=== PATIENT | female | born 1940 | race Caucasian/White ===

== ENCOUNTER → 2017-11-15 | Day surgery (SDC) | payer MEDICARE, BC ==
[~2017-11-15] MED LIST: ALENDRONATE SOD70 MG PO; AMLODIPINE BESYL5 MG PO; ASPIRIN EC81 MG PO; BUPIVACAINE 0.25%/EPI 30ML SDV INJ ONE; COLESTIPOL HCL1 GM PO; DEXAMETHASONE SOD PHOS INJ 4 MG/ML VIAL ONE; DONEPEZIL HCL10 MG PO; EPHEDRINE SULFATE INJ 50 MG/10 ML SYR ONE; FENTANYL CITRATE/PF 100MCG/2 ML INJ ONE; FOLIC ACID1 MG PO; GEMFIBROZIL600 MG PO; GLYCOPYRROLATE INJ 1MG/ 5 ML SYR ONE; HUMIRA20 MG/0.4 SC; HYDROCHLOROTH12.5 MG PO; HYDROCODONE/ACETAMINOPHEN; LABETALOL 5 MG/ML ONE; LABETALOL HCL IV 5 MG/ML 20ML MDV ONE; LIDOCAINE HCL 2% LOCAL INJ 5 ML SDV VIAL INJ ONE; LOMOTIL TABLET1 EACH PO; LOSARTAN POTAS100 MG PO; METHOTREXATE PO; MIDAZOLAM HCL 2 MG/2 ML VIAL ONE; MYRBETRIQ25 MG PO; NEOSTIGMINE 1 MG/ML 10ML VIAL ONE; NEXIUM40 MG PO; ONDANSETRON HCL INJ 2 MG/ML VIAL ONE; POTASSIUM CHLO10 ME1 PO; PROPOFOL IV EMULSION 10 MG/ML 20 ML VIAL ONE; ROCURONIUM BROMIDE 10 MG/ML 5ML VIAL ONE; SEVOFLURANE INHAL SOLN 250 ML PEN BTL ONE; ULTRAM50 MG
[2017-11-15 09:56] LABS: BASOPHILS # (AUTO) 0.1 (0.0-0.1); BASOPHILS % 0.8 % (0.0-1.0); EOSINOPHILS # (AUTO) 0.1 (0.0-0.4); EOSINOPHILS % 2.2 % (0.0-6.0); HEMOGLOBIN 12.3 g/dL (12.0-16.0); LYMPHOCYTES # (AUTO) 2.8 (1.0-3.2); LYMPHOCYTES % 43.8 % (18.0-39.1); MEAN CORPUSCULAR HEMOGLOBIN 30.4 pg (28-32); MEAN CORPUSCULAR HGB CONC 33.2 g/dL (31-35); MEAN CORPUSCULAR VOLUME 91.6 fL (81-99); MONOCYTES # (AUTO) 0.5 (0.2-0.8); MONOCYTES % 7.5 % (4.4-11.3); NEUTROPHILS # (AUTO) 2.9 (2.1-6.9); NEUTROPHILS % 45.5 % (38.7-80.0); PLATELET COUNT 199 x10e3/uL (140-360); RED BLOOD COUNT 4.04 x10e6/uL (3.6-5.1); RED CELL DISTRIBUTION WIDTH 13.2 % (11.7-14.4)
--- NOTE | 2017-11-15 10:09 | Diagnostic Imaging Report ---
PROCEDURE:CHEST 2 VIEWS TECHNIQUE:PA and lateral chest INDICATION:Preoperative evaluation for ventral hernia repair COMPARISON:[facility], , CHEST 2 VIEWS, 04/06/2015, 11:37. FINDINGS: Left lower lobe interstitial scar. Lungs are otherwise clear and symmetrically inflated. No pleural effusions. Normal heart size, mediastinal contour, and pulmonary vasculature. Intact skeleton. Healed right fourth rib fracture. Cholecystectomy clips. CONCLUSION: No acute abnormality. Dictated by: Kartik English M.D. on 11/15/2017 at 10:09 Electronically approved by: Kartik English M.D. on 11/15/2017 at 10:09
[2017-11-15 10:28] LABS: ALANINE AMINOTRANSFERASE 18 IU/L (0-55); ALBUMIN 3.7 g/dL (3.5-5.0); ALBUMIN/GLOBULIN RATIO 1.2 (0.8-2.0); ALKALINE PHOSPHATASE 54 IU/L (40-150); ANION GAP 12.5 mmol/L (8-16); BLOOD UREA NITROGEN 12 mg/dL (7-26); BUN/CREATININE RATIO 17 (6-25); CALCIUM 8.4 mg/dL (8.4-10.2); CARBON DIOXIDE 25 mmol/L (22-29); CHLORIDE 109 mmol/L (98-107); CREATININE, SERUM 0.71 mg/dL (0.57-1.11); EST GLOMERULAR FILTRATION RATE > 60 ML/MIN (60-); GLUCOSE 87 mg/dL (74-118); POTASSIUM 3.5 mmol/L (3.5-5.1); SODIUM 143 mmol/L (136-145)
--- NOTE | 2017-11-15 13:50 | Operative Report ---
DATE OF PROCEDURE: November 15, 2017 PREOPERATIVE DIAGNOSIS: Ventral hernia. POSTOPERATIVE DIAGNOSIS: Ventral hernia. OPERATION PERFORMED: Repair of ventral hernia with Ventralex patch. CREDIT CONTROL MANAGER: MEJIA Vergara. ANESTHESIA: General. COMPLICATIONS: None. ESTIMATED BLOOD LOSS: Minimal. DESCRIPTION OF PROCEDURE: With the patient lying in bed in the supine position, under good general endotracheal anesthesia, the abdomen was prepped with Betadine solution and draped in the usual manner. An upper midline abdominal incision was made. It was carried down through the subcutaneous tissue. Immediately, a hernia sac was encountered which was then from the surrounding structures, and the fascia was dissected all the way around. The hernia sac was then reduced back to the intra-abdominal cavity. A pocket was then created in the undersurface of the fascia without any difficulty. A small Ventralex patch was placed in a subfascial space, and the defect was then closed transversely using interrupted sutures of 2-0 Ethibond, anchoring the mesh on the way out and fixating it in place. The whole area was then thoroughly irrigated. Perfect hemostasis was ascertained. All layers were infiltrated on the way out with a solution of 1/4 percent Marcaine. Subcutaneous tissue was approximated with 3-0 Vicryl, and the skin was closed with pauly. A dressing was applied. The sponge, lap and needle count was correct. Patient tolerated the procedure well and returned to the recovery room in stable condition. Job#: [id number]
== END | disposition home or self-care (01) ==
LOC: OR 08:33
PROVIDERS: ATTEND Surgery
DX: K43.9 Ventral hernia without obstruction or gangrene (principal); I10 Essential (primary) hypertension; Z86.73 Personal history of transient ischemic attack (TIA), and cerebral infarction without residual deficits
CPT/HCPCS: 36415; 49560; 49568; 71046; 80053; 85025; 93005; C1781; J1100; J2001; J2250; J2405; J2710; J3490

== ENCOUNTER → 2018-02-28 | Outpatient (CLI) | payer MEDICARE, BC ==
[~2018-02-28] MED LIST changes: -BUPIVACAINE 0.25%/EPI 30ML SDV INJ ONE; -DEXAMETHASONE SOD PHOS INJ 4 MG/ML VIAL ONE; -EPHEDRINE SULFATE INJ 50 MG/10 ML SYR ONE; -FENTANYL CITRATE/PF 100MCG/2 ML INJ ONE; -GLYCOPYRROLATE INJ 1MG/ 5 ML SYR ONE; -LABETALOL 5 MG/ML ONE; -LABETALOL HCL IV 5 MG/ML 20ML MDV ONE; -LIDOCAINE HCL 2% LOCAL INJ 5 ML SDV VIAL INJ ONE; -MIDAZOLAM HCL 2 MG/2 ML VIAL ONE; -NEOSTIGMINE 1 MG/ML 10ML VIAL ONE; -ONDANSETRON HCL INJ 2 MG/ML VIAL ONE; -PROPOFOL IV EMULSION 10 MG/ML 20 ML VIAL ONE; -ROCURONIUM BROMIDE 10 MG/ML 5ML VIAL ONE; -SEVOFLURANE INHAL SOLN 250 ML PEN BTL ONE
--- NOTE | 2018-02-28 15:59 | Diagnostic Imaging Report ---
PROCEDURE:HIP RIGHT 4 VW (+/- PELVIS) COMPARISON:None. INDICATIONS:HIP PAIN FINDINGS: See conclusion. CONCLUSION: Intramedullary pedro fixation of the right femur. Hardware is intact. No evidence of lakia-hardware fracture or l loosening. No acute right hip fracture or dislocation. Degenerative changes of the right hip and knee joints. Dictated by: Surinder Kebede M.D. on 02/28/2018 at 16:03 Electronically approved by: Surinder Kebede M.D. on 02/28/2018 at 16:03
== END ==
LOC: RAD 14:46
PROVIDERS: ATTEND Family Medicine
DX: M25.551 Pain in right hip (principal); G89.29 Other chronic pain